=== PATIENT | male | born 1965 | race Caucasian/White ===

== ENCOUNTER 2017-04-20 05:59 | Day surgery (SDC) | payer MEDICARE ==
[2017-04-20] MEDS ORDERED: DIPRIVAN 200 MG/20 ML IV ONE (06:00)
[2017-04-20] MEDS ORDERED: Ketamine HCl 50 MG/ML IV ONE (06:00)
[2017-04-20 06:29] VITALS: O2SAT 96
[2017-04-20] MEDS ORDERED: Lactated Ringers 1,000 ML IV SCH (06:30)
[2017-04-20 08:39] VITALS: BP 142/96; PULSE 74
--- NOTE | 2017-04-20 11:43 | OP ---
SURGERY DATE/TIME: 04/20/2017 0700 PREOPERATIVE DIAGNOSIS: Screening. POSTOPERATIVE DIAGNOSIS: Sigmoid colon polyp and diverticulosis. PROCEDURE: Colonoscopy with polypectomy. SURGEON: Dr. Anne. ANESTHESIA: MAC. Medications given by anesthesia department. HISTORY: The patient is a 52 year-old white male patient presenting now for his first colonoscopy. He was appraised of the risks of the procedure including the risk of perforation, phlebitis, untoward reaction to medication, bleeding and missed lesions. The patient verbalized his understanding and desired to have the procedure performed. DESCRIPTION OF PROCEDURE: The patient was given the medications by the anesthesia department. He had continuous pulse oximetry, ECG monitoring, intermittent blood pressure monitoring and tidal CO2 monitoring during the examination. He was placed in the left lateral decubitus position. A digital rectal examination was performed and revealed normal anal sphincter tone and no masses and normal prostate. The flexible Olympus pediatric colonoscope was used to intubate the rectum. A view of the colon was developed sequentially to the cecum. Upon insertion and withdrawal was noted diverticulosis throughout the colon but mostly in the sigmoid colon. There was also noted pedunculated polyp measuring approximately 1.5 cm in size in the sigmoid colon and this was removed using polypectomy snare and retrieved for pathologic evaluation. Upon insertion and withdrawal including a retroflex view in the rectum, no other mucosal lesions were encountered. The scope was removed from the patient who tolerated the procedure well and was sent back to OP recovery in good condition. The prep was noted to be fair.
== END 2017-04-20 08:25 | disposition home or self-care (01) ==
LOC: SDC 05:59
PROVIDERS: ATTEND Family Medicine
PROC: 0DBN8ZX Excision of Sigmoid Colon, Via Natural or Artificial Opening Endoscopic, Diagnostic (ICD-10-PCS; principal; 2017-04-20)
DX: K63.5 Polyp of colon (principal); K57.30 Diverticulosis of large intestine without perforation or abscess without bleeding; Z12.11 Encounter for screening for malignant neoplasm of colon; I10 Essential (primary) hypertension
CPT/HCPCS: 00812; 88305; J2704